=== PATIENT | female | born 1965 | race Caucasian/White ===

== ENCOUNTER 2017-04-10 15:36 | Emergency (ER) | payer BC ==
[2017-04-10 18:45] VITALS: BP 145/95
--- NOTE | 2017-04-10 19:05 | UC ---
Throat Pain/Nasal Rodrigo HPI - HPI Summary HPI Summary: 51 y/o female presents to the urgent care c/o productive cough that started about 10 days ago. Pt reports cough is getting worse and about 2 days ago she developed chills, body aches. Unsure if fever. However she has been exposed to the flu. She also has hoarseness and nasal congestion w/ yellowish and bloody discharge at times. Pt denies SOB, chest pain abdominal pain, N/V/D - History of Current Complaint Chief Complaint: UCRespiratory Stated Complaint: COUGH,LOSING VOICE Time Seen by Provider: 04/10/17 18:55 Hx Obtained From: Patient Hx Last Menstrual Period: 05/27 Onset/Duration: Gradual Onset, Lasting Days, Still Present Severity: Mild Pain Intensity: 2 Pain Scale Used: 0-10 Numeric Cough: Sputum Appears - yellowish Associated Signs & Symptoms: Positive: Hoarseness, Sinus Discomfort, Nasal Discharge, Fever - Epiglottits Risk Factors Epiglottis Risk Factors: Negative - Allergies/Home Medications Allergies/Adverse Reactions: Allergies Allergy/AdvReac Type Severity Reaction Status Date / Time Penicillins Allergy See Comment Verified 04/10/17 18:45 Home Medications: Home Medications Ibuprofen TAB* [Advil TAB*] 800 mg PO PRN 04/10/17 [History] PMH/Surg Hx/FS Hx/Imm Hx Previously Healthy: Yes - Pt denies PMHX - Surgical History Surgical History: Yes Surgery Procedure, Year, and Place: Age 14 yrs pylonidal cyst. 2008 cellulitis on lower back area - Family History Known Family History: Positive: Cardiac Disease, Hypertension, Diabetes - Social History Occupation: Employed Full-time Lives: With Family Alcohol Use: None Substance Use Type: None Smoking Status (MU): Never Smoked Tobacco Review of Systems Constitutional: Fever, Chills Skin: Negative Eyes: Negative ENT: Sore Throat, Nasal Discharge, Sinus Congestion, Other - hoarseness Respiratory: Cough - productive Cardiovascular: Negative Gastrointestinal: Negative Genitourinary: Negative Motor: Negative Neurovascular: Negative Musculoskeletal: Negative Neurological: Negative Psychological: Negative Is Patient Immunocompromised?: No All Other Systems Reviewed And Are Negative: Yes Physical Exam Triage Information Reviewed: Yes Vital Signs: Initial Vital Signs Temp 98.1 F 04/10/17 18:40 Pulse 84 04/10/17 18:40 Resp 20 04/10/17 18:40 BP 145/95 04/10/17 18:40 Pulse Ox 96 04/10/17 18:40 - Additional Comments Vital Signs Reviewed: Yes General: well developed, well nourished female sitting in the examining table w/ o any apparent distress Eyes: Positive: Conjunctiva Clear - PERRLA, EOMI, fundi grossly normal ENT: Positive: Normal ENT inspection, Hearing grossly normal, Pharynx normal, Nasal congestion - edematous and erythematous nasal mucosa, Nasal drainage - yellowish drainage, TMs normal. Negative: Tonsillar swelling, Tonsillar exudate Neck: Positive: Supple, Nontender, No Lymphadenopathy Respiratory: no orthopnea or dyspnea. Able to speak in full sentences, no retractions or accessory muscle use, no tripod position, stridor, or head bobbing. Breath sound presents, posterior b/l upper lungs w/ mild rhonchi. No wheezes, crackles or rales. Cardiovascular: Positive: RRR, No Murmur, Pulses Normal, Brisk Capillary Refill Abdomen Description: Positive: Nontender, No Organomegaly, Soft. Negative: CVA Tenderness (R), CVA Tenderness (L) Bowel Sounds: Positive: Present Musculoskeletal Exam: Normal Musculoskeletal: Positive: Strength Intact, ROM Intact, No Edema Neurological Exam: Normal Psychological Exam: Normal Skin Exam: Normal Throat Pain/Nasal Course/Dx - Course Course Of Treatment: 51 y/o female presents to the urgent care c/o productive cough that started about 10 days ago. Pt reports cough is getting worse and about 2 days ago she developed chills, body aches. Unsure if fever. However she has been exposed to the flu. She also has hoarseness and nasal congestion w/ yellowish and bloody discharge at times. Pt denies SOB, chest pain abdominal pain, N/V/D Hx obtained. Pt w/ mild B/L posterior upper lungs w/ mild rhonchi. O2Sat: 96%. Influenza A&B ordered: negative.Pt with Acute bronchitis on examination. Pt Rx Z-narda PO and Tessalon tabs PO to alleviate cough. First dose given at the clinic tonight. Pt advised to increase fluid intake and eat well. if not improvement or worsening of symptoms to return to the urgent care or f/u with PCP for further management. Pt's BP is elevated today advised to decrease salt in diet, monitor BP and f/u with PCP for further management. Pt understood and agreed with plan of care - Differential Dx/Diagnosis Differential Diagnosis/HQI/PQRI: Influenza, Laryngitis, Pharyngitis, Tonsillitis , URI, Other - Bronchitis, pneumonia Provider Diagnoses: 1- Acute bronchitis. 2-Cough. 3-Elevated BP w/o Hx of HTN Discharge - Discharge Plan Condition: Stable Disposition: HOME Prescriptions: Azithromycin TAB* [Zithromax TAB (Z-NARDA) 250 mg #6 tabs] 250 mg PO DAILY #4 tab Benzonatate CAP* [Tessalon 100 MG CAP*] 100 mg PO TID PRN #21 cap PRN Reason: Cough Patient Education Materials: Acute Bronchitis (ED), Low-Sodium Diet (ED) Referrals: Robbie Chu MD [Primary Care Provider] - 3 Days Additional Instructions: 1-Please take full course of antibiotic to avoid resistance. 2-Take Tessalon PO tabs as directed to alleviate cough. Increase fluid intake, rest and eat well. 3- If symptoms do not improve or worsen or your develop SOB with fever and severe wheezing please go immediately to the ER further evaluation and treatment. 4- F/u with your PCP in 3 days if not improvement of symptoms for further management . 5-Your BP is elevated today. please decrease salt in your diet, monitor BP and if it continues to be elevated please f/u with your PCP for further management
[2017-04-10] MEDS ORDERED: Azithromycin TAB* 250 MG PO ONE (19:32)
== END 2017-04-10 20:06 | disposition home or self-care (01) ==
LOC: UCEAST 15:36
DX: J20.9 Acute bronchitis, unspecified (principal); R05 Cough; R03.0 Elevated blood-pressure reading, without diagnosis of hypertension; Z88.0 Allergy status to penicillin
CPT/HCPCS: 87502; 99202; A9270-GY; G0463